=== PATIENT | female | born 1980 | race Caucasian/White ===

== ENCOUNTER → 2020-11-22 | Outpatient (CLI) | payer OTHER ==
--- NOTE | 2020-11-22 10:55 | XR ---
EXAMINATION TYPE: XR lumbosacral spine min 4V DATE OF EXAM: 11/22/2020 CLINICAL HISTORY: pain COMPARISON: NONE TECHNIQUE: Frontal, lateral, and oblique images of the lumbar spine are obtained. FINDINGS: There are 5 lumbar type vertebral bodies identified. The lumbar spine shows satisfactory alignment without evidence of acute fracture or dislocation. Vertebral body heights are within normal limits. 5 mm anterolisthesis L5 on S1. Chronic loss of height superior endplate of T12. The overlyi ng soft tissue appears unremarkable. IMPRESSION: No acute fracture or dislocation is seen in the lumbar spine.ICD 10 NO FRACTURE, INITIAL EVALUATION
--- NOTE | 2020-11-22 11:23 | XR ---
Cervical spine. HISTORY: Neck pain COMPARISON: None. TECHNIQUE: 5 views cervical spine were obtained. The craniovertebral junction relationships and prevertebral soft tissues are normal. The C1/C2 relati onships are normal. Cervical vertebral segments are normal in height and alignment and there is no fracture or subluxatio n. The disc spaces are well-maintained in height. The facet joints and uncovertebral joints are normal without degeneration. The neuroforamina are wide ly patent bilaterally. Pression: No significant abnormality seen.
--- NOTE | 2020-11-22 11:42 | XR ---
EXAMINATION TYPE: XR thoraco lumbar junction DATE OF EXAM: 11/22/2020 COMPARISON: NONE HISTORY: [id number] DORSALGIA TECHNIQUE: 2 views of the thoracolumbar spine submitted. FINDINGS: Chronic loss of height involving the superior endplate of T12. 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 IMPRESSION: As above
== END | disposition home or self-care (01) ==
LOC: RADXRYALE 09:44
PROVIDERS: ATTEND Physician Assistant
DX: M54.9 Dorsalgia, unspecified (principal); M54.2 Cervicalgia; M54.5 Low back pain
CPT/HCPCS: 72050; 72080; 72110